=== PATIENT | female | born 1950 | race Caucasian/White ===

== ENCOUNTER 2022-08-17 05:33 | Inpatient (IN) ==
[2022-08-09 12:11] LABS: Basophils % 0.5 % (0.0-0.8); Eosinophils # 0.2 10*3/uL (0.0-0.87); Eosinophils % 3.4 % (0.00-10.9); Hematocrit 41.3 VOL% (35.7-47.0); Immature Granulocytes % 0.7 %; Immature Granulocytes Absolute 0.03 #; Lymphocytes # 1.2 10*3/uL (1.4-4.0); Lymphocytes % 28.4 % (21.3-54.2); Mean Corpuscular HGB Conc 33.9 GM/DL (32-36); Mean Corpuscular Volume 90.8 FL (87-102); Mean Platelet Volume 10.3 FL (9.6-12.0); Monocytes # 0.4 10*3/uL (0.11-0.8); Monocytes % 8.9 % (1.7-12.7); Neutrophils % 58.1 % (38.7-73.9); Platelet Count 216 T/CUMM (130-400); Red Blood Count 4.55 MC/CUMM (3.8-5.5); Red Cell Distribution Width 11.7 % (9.3-17.3); White Blood Count 4.4 T/CUMM (4-12)
[2022-08-09 12:15] LABS: RBC,Urine <1 /HPF (0-4); Squamous Epithelial Cell,Urine Occasional /HPF (0-10)
[2022-08-09 12:17] LABS: Bilirubin,Urine Negative (Negative); Blood, Urine Negative (Negative); Glucose,Urine (UA) Negative (Negative); Ketones,Urine Negative (Negative); Nitrite,Urine Negative (Negative); Protein,Urine Negative (Negative); Urine Appearance Clear (Clear); Urine Color Yellow (Yellow); Urine Specific Gravity < 1.005 (1.001-1.035); Urine Urobilinogen 0.2 eU/dL (<2.0); Urine pH 6.5 (4.5-8.0)
[2022-08-09 12:28] LABS: INR 0.9; PT Patient Result 9.5 SECS (10.1-12.1); Partial Thromboplastin Time 27.2 SECS (23.7-32.9)
[2022-08-09 12:42] LABS: Albumin 4.2 G/DL (3.4-5.0); Bilirubin,Total 0.4 MG/DL (0.20-1.00); Calcium 9.6 MG/DL (8.5-10.1); Osmolality,Calculated 277.4 MOS/KG (273-304); Potassium 4.5 MMOL/L (3.5-5.1); Total Protein 7.5 G/DL (6.4-8.2)
[2022-08-17] MEDS ORDERED: VANCOMYCIN INJ 1,000 MG in SODIUM CHLORIDE 0.9% 250 ML IV ONE (06:30)
[2022-08-17] MEDS ORDERED: DIAZEPAM 2 MG TABLET ONE (06:47)
[2022-08-17] MEDS ORDERED: GABAPENTIN 400 MG CAPSULE ONE (06:48)
[2022-08-17] MEDS ORDERED: ACETAMINOPHEN 500 MG TABLET ONE (06:48)
[2022-08-17] MEDS ORDERED: FAMOTIDINE 20 MG TABLET ONE (06:48)
[2022-08-17] MEDS ORDERED: ACETAMINOPHEN 500 MG TABLET PO ONE (06:49)
[2022-08-17] MEDS ORDERED: GABAPENTIN 400 MG CAPSULE PO ONE (06:49)
[2022-08-17] MEDS ORDERED: SCOPOLAMINE 1.5 MG PATCH TRANSDERM ONE (06:49)
[2022-08-17] MEDS ORDERED: buprenorphine HCL 0.3 MG/ML VIAL ONE (06:59)
[2022-08-17] MEDS ORDERED: LACTATED RINGERS 1,000 ML IV SCH (07:00)
[2022-08-17] MEDS ORDERED: KETAMINE 500 MG/10 ML VIAL ONE (07:00)
[2022-08-17] MEDS ORDERED: BACITRACIN OINT 0.9 GM PACK TOP ONE (07:01)
[2022-08-17] MEDS ORDERED: BUPIVACAINE 0.5% 50 ML VIAL ONE (07:05)
[2022-08-17] MEDS ORDERED: ONDANSETRON 4 MG/2 ML VIAL ONE (07:08)
[2022-08-17] MEDS ORDERED: LIDOCAINE 2% 5 ML VIAL ONE (07:08)
[2022-08-17] MEDS ORDERED: MAGNESIUM HYDROXIDE SUSP 30 ML UDCUP PO PRN (08:43)
[2022-08-17] MEDS ORDERED: ONDANSETRON 4 MG/2 ML VIAL IV PRN (08:43)
[2022-08-17] MEDS ORDERED: diphenhydrAMINE CAP 25 MG CAPSULE PO PRN (08:43)
[2022-08-17] MEDS ORDERED: MORPHINE 2 MG/1 ML SYRINGE IV PRN ×2 (08:43)
[2022-08-17] MEDS ORDERED: TRANEXAMIC ACID 1,000 MG/10 ML VIAL ONE (08:58)
[2022-08-17] MEDS ORDERED: CALCIUM CHLORIDE 1,000 MG/10 ML VIAL IV ONE (08:58)
[2022-08-17] MEDS ORDERED: PHENYLEPHRINE 1 MG/10 ML SYRINGE IV ONE (08:58)
[2022-08-17] MEDS ORDERED: KETOROLAC 15 MG/1 ML VIAL IV SCH (09:00)
[2022-08-17] MEDS ORDERED: ePHEDrine 50 MG/ML VIAL ONE (09:53)
[2022-08-17] MEDS ORDERED: LACTATED RINGERS 1,000 ML IV ONE (11:41)
[2022-08-17] MEDS: LACTATED RINGERS 1,000 ML IV SCH ×2 (13:04→16:51)
[2022-08-17] MEDS: KETOROLAC 15 MG/1 ML VIAL IV SCH ×3 (14:12→23:58)
[2022-08-17] MEDS: DOCUSATE SODIUM 100 MG CAPSULE PO SCH ×2 (14:12→21:54)
[2022-08-17] MEDS: DONEPEZIL 5 MG TABLET PO SCH (21:54)
[2022-08-17] MEDS: FOLIC ACID 1 MG TABLET PO SCH (21:55)
[2022-08-17] MEDS: MEMANTINE 10 MG TABLET PO SCH (21:55)
[2022-08-18] MEDS: LACTATED RINGERS 1,000 ML IV SCH (03:57)
[2022-08-18] MEDS: FONDAPARINUX 2.5 MG/0.5 ML SYRINGE SUBCUT SCH (05:20)
[2022-08-18 05:34] LABS: Basophils % 0.3 % (0.0-0.8); Eosinophils % 0.2 % (0.00-10.9); Hematocrit 30.8 VOL% (35.7-47.0); Hemoglobin 10.2 GM/DL (12.0-16.0); Immature Granulocytes % 0.6 %; Immature Granulocytes Absolute 0.07 #; Lymphocytes # 1.3 10*3/uL (1.4-4.0); Lymphocytes % 10.6 % (21.3-54.2); Mean Corpuscular HGB Conc 33.1 GM/DL (32-36); Mean Corpuscular Volume 93.6 FL (87-102); Mean Platelet Volume 10.4 FL (9.6-12.0); Monocytes # 1.4 10*3/uL (0.11-0.8); Monocytes % 11.3 % (1.7-12.7); Platelet Count 207 T/CUMM (130-400); Red Blood Count 3.29 MC/CUMM (3.8-5.5); White Blood Count 12.4 T/CUMM (4-12)
[2022-08-18 06:05] LABS: Calcium 8.1 MG/DL (8.5-10.1); Osmolality,Calculated 274.5 MOS/KG (273-304); Potassium 4.1 MMOL/L (3.5-5.1)
[2022-08-18] MEDS: DOCUSATE SODIUM 100 MG CAPSULE PO SCH ×2 (08:24→21:51)
[2022-08-18] MEDS: ESCITALOPRAM 10 MG TABLET PO SCH (08:25)
[2022-08-18] MEDS: ESTRADIOL 1 MG TABLET PO SCH (08:25)
[2022-08-18] MEDS: CHOLECALCIFEROL 1,000 UNIT TABLET PO SCH (08:25)
[2022-08-18] MEDS: CYANOCOBALAMIN 500 MCG TABLET PO SCH (08:25)
[2022-08-18] MEDS: FOLIC ACID 1 MG TABLET PO SCH ×3 (08:25→21:52)
[2022-08-18] MEDS: ATORVASTATIN 40 MG TABLET PO SCH (08:25)
[2022-08-18] MEDS: VALSARTAN 160 MG TABLET PO SCH (08:26)
[2022-08-18] MEDS: ZALEPLON 5 MG CAPSULE PO PRN (21:51)
[2022-08-18] MEDS: DONEPEZIL 5 MG TABLET PO SCH (21:51)
[2022-08-18] MEDS: ACETAMINOPHEN 500 MG TABLET PO PRN (21:52)
[2022-08-18] MEDS: MEMANTINE 10 MG TABLET PO SCH (21:52)
[2022-08-19] MEDS: FONDAPARINUX 2.5 MG/0.5 ML SYRINGE SUBCUT SCH (05:06)
[2022-08-19] MEDS: ACETAMINOPHEN 500 MG TABLET PO PRN ×2 (05:06→16:02)
[2022-08-19 05:44] LABS: Basophils % 0.3 % (0.0-0.8); Eosinophils % 0.3 % (0.00-10.9); Hematocrit 29.1 VOL% (35.7-47.0); Hemoglobin 9.5 GM/DL (12.0-16.0); Immature Granulocytes % 0.6 %; Immature Granulocytes Absolute 0.07 #; Lymphocytes # 0.9 10*3/uL (1.4-4.0); Lymphocytes % 7.6 % (21.3-54.2); Mean Corpuscular HGB Conc 32.6 GM/DL (32-36); Mean Corpuscular Volume 93.3 FL (87-102); Mean Platelet Volume 10.1 FL (9.6-12.0); Monocytes # 1.2 10*3/uL (0.11-0.8); Monocytes % 10.6 % (1.7-12.7); Neutrophils % 80.6 % (38.7-73.9); Platelet Count 166 T/CUMM (130-400); Red Blood Count 3.12 MC/CUMM (3.8-5.5); White Blood Count 11.5 T/CUMM (4-12)
[2022-08-19] MEDS: DOCUSATE SODIUM 100 MG CAPSULE PO SCH ×2 (08:23→21:27)
[2022-08-19] MEDS: ESTRADIOL 1 MG TABLET PO SCH (08:23)
[2022-08-19] MEDS: ESCITALOPRAM 10 MG TABLET PO SCH (08:24)
[2022-08-19] MEDS: CHOLECALCIFEROL 1,000 UNIT TABLET PO SCH (08:24)
[2022-08-19] MEDS: FOLIC ACID 1 MG TABLET PO SCH ×3 (08:24→21:27)
[2022-08-19] MEDS: ATORVASTATIN 40 MG TABLET PO SCH (08:24)
[2022-08-19] MEDS: CYANOCOBALAMIN 500 MCG TABLET PO SCH (08:24)
[2022-08-19] MEDS: VALSARTAN 160 MG TABLET PO SCH (08:26)
[2022-08-19] MEDS ORDERED: TUBERCULIN SKIN TEST 0.1 ML SYRINGE INTRADERM ONE (15:30)
[2022-08-19] MEDS: DONEPEZIL 5 MG TABLET PO SCH (21:27)
[2022-08-19] MEDS: MEMANTINE 10 MG TABLET PO SCH (21:27)
[2022-08-19] MEDS: ZALEPLON 5 MG CAPSULE PO PRN (21:32)
[2022-08-20] MEDS: ACETAMINOPHEN 500 MG TABLET PO PRN ×4 (01:06→21:55)
[2022-08-20] MEDS: FONDAPARINUX 2.5 MG/0.5 ML SYRINGE SUBCUT SCH (04:50)
[2022-08-20 05:29] LABS: Basophils % 0.3 % (0.0-0.8); Eosinophils # 0.1 10*3/uL (0.0-0.87); Hematocrit 27.9 VOL% (35.7-47.0); Hemoglobin 9.5 GM/DL (12.0-16.0); Immature Granulocytes % 0.6 %; Immature Granulocytes Absolute 0.06 #; Lymphocytes # 1.1 10*3/uL (1.4-4.0); Lymphocytes % 11.5 % (21.3-54.2); Mean Corpuscular HGB Conc 34.1 GM/DL (32-36); Mean Corpuscular Volume 91.2 FL (87-102); Mean Platelet Volume 10.4 FL (9.6-12.0); Monocytes # 0.9 10*3/uL (0.11-0.8); Neutrophils % 77.6 % (38.7-73.9); Platelet Count 192 T/CUMM (130-400); Red Blood Count 3.06 MC/CUMM (3.8-5.5); Red Cell Distribution Width 11.8 % (9.3-17.3); White Blood Count 9.4 T/CUMM (4-12)
[2022-08-20] MEDS: CHOLECALCIFEROL 1,000 UNIT TABLET PO SCH (08:53)
[2022-08-20] MEDS: ESTRADIOL 1 MG TABLET PO SCH (08:53)
[2022-08-20] MEDS: CYANOCOBALAMIN 500 MCG TABLET PO SCH (08:53)
[2022-08-20] MEDS: VALSARTAN 160 MG TABLET PO SCH (08:53)
[2022-08-20] MEDS: ATORVASTATIN 40 MG TABLET PO SCH (08:53)
[2022-08-20] MEDS: DOCUSATE SODIUM 100 MG CAPSULE PO SCH ×2 (08:53→20:53)
[2022-08-20] MEDS: FOLIC ACID 1 MG TABLET PO SCH ×3 (08:54→20:53)
[2022-08-20] MEDS: ESCITALOPRAM 10 MG TABLET PO SCH (08:54)
[2022-08-20] MEDS: MEMANTINE 10 MG TABLET PO SCH (20:53)
[2022-08-20] MEDS: DONEPEZIL 5 MG TABLET PO SCH (20:53)
[2022-08-20] MEDS: ZALEPLON 5 MG CAPSULE PO PRN (21:55)
[2022-08-21] MEDS: FONDAPARINUX 2.5 MG/0.5 ML SYRINGE SUBCUT SCH (05:01)
[2022-08-21] MEDS: CHOLECALCIFEROL 1,000 UNIT TABLET PO SCH (09:31)
[2022-08-21] MEDS: ESTRADIOL 1 MG TABLET PO SCH (09:31)
[2022-08-21] MEDS: DOCUSATE SODIUM 100 MG CAPSULE PO SCH (09:32)
[2022-08-21] MEDS: ATORVASTATIN 40 MG TABLET PO SCH (09:32)
[2022-08-21] MEDS: FOLIC ACID 1 MG TABLET PO SCH (09:32)
[2022-08-21] MEDS: ESCITALOPRAM 10 MG TABLET PO SCH (09:32)
[2022-08-21] MEDS: VALSARTAN 160 MG TABLET PO SCH (09:32)
[2022-08-21] MEDS: CYANOCOBALAMIN 500 MCG TABLET PO SCH (09:41)
[2022-08-21 11:33] VITALS: BP 152/69
== END 2022-08-21 12:24 | disposition home or self-care (01) | DRG 470 ==
LOC: N.3E 05:33 → N.OR 05:33 → N.SDSINP 05:33 → N.3E 10:51
PROVIDERS: ADMIT Orthopaedic Surgery; ATTEND Orthopaedic Surgery